=== PATIENT | male | born 1990 | race Caucasian/White ===

== ENCOUNTER 2021-08-12 15:29 | Emergency (ER) | payer SELFPAY ==
[2021-08-12 17:07] LABS: BASOPHIL 0.2 % (0-2); EOSINOPHIL 0.6 % (0-5); HGB 14.9 g/dl (13.2-18.0); LYMPHOCYTE 15.9 % (15-48); MCHC 33.9 g/dL (32.0-36.0); MCV 88.5 fL (78.0-100.0); MPV 8.9 fL (6.0-9.5); NRBC 0; PLT 274 K/uL (150-400); RBC 4.97 M/uL (4.70-6.00); RDW 12.3 % (11.5-14.0); WBC 9.3 K/uL (4.0-10.5)
[2021-08-12 17:27] LABS: BUN/CREAT RATIO (CALC) 16.2 RATIO; CREATININE 1.05 mg/dL (0.67-1.17); POTASSIUM 3.5 mmol/L (3.5-5.1)
[2021-08-12 17:28] LABS: LACTIC ACID 1.2 mmol/L (0.4-1.9)
[2021-08-12 17:40] LABS: INFLUENZA A NAA NEGATIVE (NEGATIVE)
[2021-08-12 17:50] LABS: CORONAVIRUS 2019 SARS-COV-2 POSITIVE (NEGATIVE)
[2021-08-12] MEDS ORDERED: MIRALAX17 GM PO (19:16)
== END 2021-08-12 19:45 | disposition home or self-care (01) ==
LOC: FER 15:29
PROVIDERS: Nurse Practitioner Family
DX: U07.1 COVID-19 (principal); K59.00 Constipation, unspecified; M54.50 Low back pain, unspecified; R10.32 Left lower quadrant pain; F17.210 Nicotine dependence, cigarettes, uncomplicated
CPT/HCPCS: 36415; 80048; 83605; 85025; 87040; J1885; J2405; J7030; Q9967; U0002